=== PATIENT | male | born 1965 | race Two or more races ===

== ENCOUNTER 2024-11-07 07:05 | Inpatient (IN) | payer OTHER ==
[~2024-11-07] VITALS: Ht 172.7 cm; Wt 99.8 kg
[2024-11-07] MEDS ORDERED: METFORMIN HCL1000 M2 PO (07:46)
[2024-11-07] MEDS ORDERED: TOPROL XL25 M1 (07:46)
[2024-11-07] MEDS ORDERED: JARDIANCE25 MG PO (07:47)
[2024-11-07] MEDS ORDERED: LIPOFEN150 MG (07:47)
[2024-11-07] MEDS ORDERED: PLAVIX75 MG PO (07:48)
[2024-11-07] MEDS ORDERED: ZESTRIL10 M1 (07:48)
[2024-11-07] MEDS ORDERED: TRADJENTA5 MG (07:48)
[2024-11-07] MEDS ORDERED: LANTHANUM CAR1000 MG PO (07:49)
[2024-11-07] MEDS ORDERED: 0.9 % SODIUM CHLORIDE 1,000 ML IV SCH ×2 (08:21→12:45)
[2024-11-07 09:07] LABS: HEMATOCRIT 43.6 % (39.0-48.0); HEMOGLOBIN 14.7 g/dL (13-16.00); MEAN CELL VOLUME 89.2 fL (80.0-100.00); MEAN CORPUSCULAR HEMOGLOBIN 30.1 pg (27.00-32.0); MEAN CORPUSCULAR HGB CONC 33.8 g/dl (32.0-36.0); PLATELET COUNT 194 K/uL (150-450); RED BLOOD COUNT 4.88 M/uL (4.00-6.00); RED CELL DISTRIBUTION WIDTH 15.9 % (11.5-14.5)
[2024-11-07 09:28] LABS: CALCIUM 9.4 mg/dL (8.5-10.1); CREATININE SERUM 1.56 mg/dL (0.70-1.30); GFR 45.78; POTASSIUM 4.27 mEq/L (3.5-5.1)
[2024-11-07 09:30] LABS: INR 1.02; PARTIAL THROMBOPLASTIN TIME 28.8 SECONDS (22.0-34.0); PROTHROMBIN TIME 11.1 SECONDS (9.0-11.5)
[2024-11-07 09:33] LABS: URINE APPEARANCE Clear; URINE BACTERIA 6.1 uL (0.0-1933); URINE BILIRRUBIN Negative (NEGATIVE); URINE BLOOD Negative; URINE COLOR Yellow; URINE KETONE Negative (NEGATIVE); URINE LEUKOCYTE Negative; URINE NITRATE Negative; URINE PROTEIN Negative (NEGATIVE); URINE RBC 22.5 uL (0.0-20.8); URINE UROBILINOGEN 0.2 E.U./dl; URINE WBC 1.8 uL (0.0-23.2)
[2024-11-07 09:41] LABS: URINE EPITHELIAL CELLS 0.9 uL (0.0-38.8); URINE GLUCOSE >=1000 MG/DL (NEGATIVE)
[2024-11-07] MEDS ORDERED: SODIUM HYPOCHLORITE 1OZ TOP SCH (10:22)
[2024-11-07] MEDS ORDERED: PIPERACILLIN/TAZOBACTAM SODIUM 3.375 GM in 0.9 % SODIUM CHLORIDE 100 ML IV SCH (12:38)
[2024-11-07] MEDS ORDERED: ACETAMINOPHEN 500 MG GEL..CAP PO PRN (12:45)
[2024-11-07] MEDS ORDERED: INSULIN LISPRO 1,000 UNIT/10 ML UNITS SUBCUTANEO PRN (12:45)
[2024-11-07] MEDS ORDERED: DEXTROSE 50 % IN WATER 0.5 G/ML DISP.SYRIN IV PRN (12:45)
[2024-11-07] MEDS ORDERED: LISINOPRIL 10 MG TABLET PO SCH (12:50)
[2024-11-07] MEDS ORDERED: CLOPIDOGREL BISULFATE 75 MG TABLET PO SCH (12:50)
[2024-11-07] MEDS ORDERED: METOPROLOL TARTRATE 25 MG TABLET PO SCH (12:51)
[2024-11-07] MEDS ORDERED: ATORVASTATIN CALCIUM 40 MG TABLET PO SCH (12:51)
[2024-11-07] MEDS ORDERED: GABAPENTIN 800 MG TABLET PO SCH (12:51)
[2024-11-07 13:07] VITALS: BP 157/76
[2024-11-07] MEDS ORDERED: FAMOTIDINE/PF 20 MG/2 ML VIAL ONE (13:30)
[2024-11-07] MEDS ORDERED: PIPERACILLIN/TAZOBACTAM SODIUM 3.375 GM VIAL IV ONE (13:30)
[2024-11-07] MEDS ORDERED: FAMOTIDINE/PF 20 MG/2 ML VIAL IV NR (14:00)
[2024-11-07 14:02] LABS: PARTIAL THROMBOPLASTIN TIME 29.9 SECONDS (22.0-34.0); PROTHROMBIN TIME 10.9 SECONDS (9.0-11.5)
[2024-11-07 14:29] LABS: ALBUMIN 3.6 gm/dL (3.4-5.0); CALCIUM 9.5 mg/dL (8.5-10.1); CREATININE SERUM 1.44 mg/dL (0.70-1.30); GFR 50.21; PHOSPHOROUS 4.1 mg/dL (2.5-4.9); POTASSIUM 4.53 mEq/L (3.5-5.1)
[2024-11-07 16:06] VITALS: BP 142/72; O2SAT 100
[2024-11-07] MEDS ORDERED: NICOTINE 21MG/24HR PATCH.TD24 TD SCH (17:00)
[2024-11-07 18:12] VITALS: BP 146/79; O2SAT 97
[2024-11-07] MEDS ORDERED: FAMOTIDINE/PF 20 MG in 0.9 % SODIUM CHLORIDE 8 ML IV PUSH SCH (21:00)
[2024-11-08 01:48] VITALS: BP 142/72; O2SAT 95
[2024-11-08 08:39] VITALS: BP 154/80; O2SAT 99
[2024-11-08] MEDS ORDERED: FAMOTIDINE/PF 20 MG/2 ML VIAL ONE (15:27)
[2024-11-08 17:31] VITALS: BP 151/76; O2SAT 100
[2024-11-08] MEDS ORDERED: INSULIN GLARGINE,HUM.REC.ANLOG 1,000 UNITS/10 ML UNITS SUBCUTANEO SCH (21:00)
[2024-11-08] MEDS ORDERED: PIPERACILLIN/TAZOBACTAM SODIUM 3.375 GM VIAL IV ONE (23:44)
[2024-11-09 02:19] VITALS: BP 156/76; O2SAT 99
[2024-11-09 07:43] LABS: CALCIUM 9.3 mg/dL (8.5-10.1); CREATININE SERUM 1.51 mg/dL (0.70-1.30); GFR 47.53; POTASSIUM 4.74 mEq/L (3.5-5.1)
[2024-11-09 09:33] VITALS: BP 152/73; O2SAT 98
[2024-11-09] MEDS ORDERED: INSULIN LISPRO 1,000 UNIT/10 ML UNITS SUBCUTANEO STA (10:04)
[2024-11-09] MEDS ORDERED: INSULIN REGULAR, HUMAN 1,000 UNIT/10 ML UNITS IV STA (10:04)
[2024-11-09] MEDS ORDERED: INSULIN LISPRO 1,000 UNIT/10 ML UNITS SUBCUTANEO SCH ×2 (12:00)
[2024-11-09 16:19] VITALS: BP 172/78; O2SAT 97
[2024-11-09] MEDS ORDERED: FAMOTIDINE/PF 20 MG/2 ML VIAL ONE (20:02)
[2024-11-09] MEDS ORDERED: INSULIN GLARGINE,HUM.REC.ANLOG 1,000 UNITS/10 ML UNITS SUBCUTANEO SCH ×2 (21:00)
[2024-11-10] MEDS ORDERED: SODIUM CL 0.9% 100 ML IV.SOLN IV ONE (02:12)
[2024-11-10 03:04] VITALS: BP 142/76; O2SAT 100
[2024-11-10 10:07] VITALS: BP 147/73
[2024-11-10] MEDS ORDERED: INSULIN LISPRO 1,000 UNIT/10 ML UNITS SUBCUTANEO SCH (12:00)
[2024-11-10 17:26] VITALS: BP 179/77; O2SAT 93
[2024-11-11 01:27] VITALS: BP 140/69
[2024-11-11 07:47] LABS: ALBUMIN 3.2 gm/dL (3.4-5.0); CALCIUM 9.7 mg/dL (8.5-10.1); CREATININE SERUM 1.61 mg/dL (0.70-1.30); GFR 44.14; PHOSPHOROUS 4.1 mg/dL (2.5-4.9); POTASSIUM 4.78 mEq/L (3.5-5.1)
[2024-11-11 09:00] VITALS: BP 148/80; O2SAT 98
[2024-11-11 15:22] LABS: ALBUMIN 3.5 gm/dL (3.4-5.0); BILIRUBIN TOTAL 0.39 mg/dL (0.3-1.2); CALCIUM 10.1 mg/dL (8.5-10.1); CREATININE SERUM 2.09 mg/dL (0.70-1.30); GFR 32.67; GLOBULINA 4.4 G/DL (2.4-3.5); POTASSIUM 4.32 mEq/L (3.5-5.1); TOTAL PROTEIN 7.9 gm/dL (6.4-8.2)
[2024-11-11 16:39] VITALS: BP 128/70; O2SAT 98
[2024-11-12 00:47] VITALS: BP 146/78; O2SAT 98
[2024-11-12] MEDS ORDERED: INSULIN LISPRO 1,000 UNIT/10 ML UNITS SUBCUTANEO SCH (08:00)
[2024-11-12 08:54] VITALS: BP 148/75; O2SAT 99
[2024-11-12 17:19] VITALS: BP 133/78; O2SAT 97
[2024-11-13 01:05] VITALS: BP 155/80; O2SAT 98
[2024-11-13 06:08] LABS: HEMATOCRIT 43.6 % (39.0-48.0); HEMOGLOBIN 14.8 g/dL (13-16.00); MEAN CELL VOLUME 88.5 fL (80.0-100.00); MEAN CORPUSCULAR HGB CONC 33.9 g/dl (32.0-36.0); PLATELET COUNT 195 K/uL (150-450); RED BLOOD COUNT 4.93 M/uL (4.00-6.00); RED CELL DISTRIBUTION WIDTH 15.7 % (11.5-14.5)
[2024-11-13 06:57] LABS: ALBUMIN 3.3 gm/dL (3.4-5.0); CALCIUM 9.7 mg/dL (8.5-10.1); CREATININE SERUM 1.93 mg/dL (0.70-1.30); GFR 35.81; PHOSPHOROUS 4.3 mg/dL (2.5-4.9); POTASSIUM 4.54 mEq/L (3.5-5.1)
[2024-11-13 08:49] VITALS: BP 143/77; O2SAT 98
[2024-11-13 15:37] LABS: CALCIUM 10.1 mg/dL (8.5-10.1); CREATININE SERUM 1.71 mg/dL (0.70-1.30); GFR 41.18; POTASSIUM 4.67 mEq/L (3.5-5.1)
[2024-11-13 16:54] VITALS: BP 143/72; O2SAT 100
[2024-11-14 01:26] VITALS: BP 145/66; O2SAT 97
[2024-11-14 09:18] VITALS: BP 148/74; O2SAT 98
== END 2024-11-14 10:05 | disposition home or self-care (01) | DRG 623 ==
LOC: ER 07:07 → MEDI 13:01
PROVIDERS: Emergency Medicine; General Practice; Internal Medicine Endocrinology, Diabetes & Metabolism; Student in an Organized Health Care Education/Training Program; ADMIT Internal Medicine; ATTEND Internal Medicine
PROC: BL31ZZZ Magnetic Resonance Imaging (MRI) of Lower Extremity Connective Tissue (ICD-10-PCS; 2024-11-07)
PROC: 0JBQ0ZZ Excision of Right Foot Subcutaneous Tissue and Fascia, Open Approach (ICD-10-PCS; principal; 2024-11-08)
PROC: 0QBQ0ZZ Excision of Right Toe Phalanx, Open Approach (ICD-10-PCS; 2024-11-08)
PROC: B44HZZZ Ultrasonography of Bilateral Lower Extremity Arteries (ICD-10-PCS; 2024-11-08)
DX: E11.621 Type 2 diabetes mellitus with foot ulcer (principal); L02.611 Cutaneous abscess of right foot; M86.171 Other acute osteomyelitis, right ankle and foot; L97.512 Non-pressure chronic ulcer of other part of right foot with fat layer exposed; E11.51 Type 2 diabetes mellitus with diabetic peripheral angiopathy without gangrene; E11.65 Type 2 diabetes mellitus with hyperglycemia; N17.9 Acute kidney failure, unspecified; I13.10 Hypertensive heart and chronic kidney disease without heart failure, with stage 1 through stage 4 chronic kidney disease, or unspecified chronic kidney disease; N18.9 Chronic kidney disease, unspecified; B95.61 Methicillin susceptible Staphylococcus aureus infection as the cause of diseases classified elsewhere; B95.2 Enterococcus as the cause of diseases classified elsewhere; B96.83 Acinetobacter baumannii as the cause of diseases classified elsewhere; B96.1 Klebsiella pneumoniae [K. pneumoniae] as the cause of diseases classified elsewhere; Z79.4 Long term (current) use of insulin; Z79.84 Long term (current) use of oral hypoglycemic drugs
CPT/HCPCS: 73221

== ENCOUNTER 2024-12-15 07:58 | Emergency (ER) | payer OTHER ==
[~2024-12-15] VITALS: Ht 180.3 cm; Wt 92.5 kg
[~2024-12-15 07:58] MED LIST: JARDIANCE25 MG PO; LANTHANUM CAR1000 MG PO; LIPOFEN150 MG; METFORMIN HCL1000 M2 PO; PLAVIX75 MG PO; TOPROL XL25 M1; TRADJENTA5 MG; ZESTRIL10 M1
[2024-12-15] MEDS ORDERED: DICLOFENAC SODI75 MG PO (08:33)
[2024-12-15] MEDS ORDERED: ORPHENADRINE CITRATE 30 MG/ML AMPUL ONE (08:36)
[2024-12-15] MEDS ORDERED: KETOROLAC TROMETHAMINE 60 MG VIAL IM ONE ×2 (08:36→08:45)
[2024-12-15] MEDS ORDERED: ORPHENADRINE CITRATE 30 MG/ML AMPUL IM ONE (08:45)
== END 2024-12-15 08:44 | disposition home or self-care (01) ==
LOC: ER 08:00
DX: M54.50 Low back pain, unspecified (principal); I10 Essential (primary) hypertension; E11.9 Type 2 diabetes mellitus without complications; Z79.84 Long term (current) use of oral hypoglycemic drugs

== ENCOUNTER 2024-12-19 05:32 | Emergency (ER) | payer OTHER ==
[~2024-12-19] VITALS: Ht 180.3 cm; Wt 92.5 kg
[~2024-12-19 05:32] MED LIST changes: +DICLOFENAC SODI75 MG PO
[2024-12-19] MEDS ORDERED: ORPHENADRINE CITRATE 30 MG/ML AMPUL IV STA (07:06)
[2024-12-19] MEDS ORDERED: METHYLPREDNISOLONE SOD SUCC 125 MG VIAL IV STA (07:06)
[2024-12-19] MEDS ORDERED: KETOROLAC TROMETHAMINE 30 MG VIAL IV STA (07:06)
[2024-12-19] MEDS ORDERED: ORPHENADRINE CITRATE 30 MG/ML AMPUL ONE (07:23)
[2024-12-19] MEDS ORDERED: KETOROLAC TROMETHAMINE 30 MG VIAL ONE (07:23)
[2024-12-19] MEDS ORDERED: METHYLPREDNISOLONE SOD SUCC 125 MG VIAL ONE (07:24)
[2024-12-19] MEDS ORDERED: WATER FOR INJ.,BACTERIOSTATIC 30 ML VIAL IJ ONE (07:24)
[2024-12-19] MEDS ORDERED: CELEBREX200MG PO (09:53)
[2024-12-19] MEDS ORDERED: METAXALONE800 MG PO (09:53)
[2024-12-19 10:10] VITALS: BP 149/74; O2SAT 98
== END 2024-12-19 10:12 | disposition home or self-care (01) ==
LOC: ER 05:35
DX: M54.50 Low back pain, unspecified (principal); M54.16 Radiculopathy, lumbar region; I10 Essential (primary) hypertension; E11.9 Type 2 diabetes mellitus without complications; Z79.84 Long term (current) use of oral hypoglycemic drugs

== ENCOUNTER 2025-10-28 07:08 | Emergency (ER) | payer OTHER ==
[~2025-10-28] VITALS: Ht 180.3 cm; Wt 93.0 kg
[~2025-10-28 07:08] MED LIST changes: +CELEBREX200MG PO; +METAXALONE800 MG PO
[2025-10-28 07:17] VITALS: BP 168/84; O2SAT 100
[2025-10-28] MEDS ORDERED: ORPHENADRINE CITRATE 30 MG/ML AMPUL ONE (07:54)
[2025-10-28] MEDS ORDERED: KETOROLAC TROMETHAMINE 60 MG VIAL IM ONE ×2 (07:54→08:00)
[2025-10-28] MEDS ORDERED: ORPHENADRINE CITRATE 30 MG/ML AMPUL IM ONE (08:00)
[2025-10-28] MEDS ORDERED: NORFLEX100MG PO (09:51)
== END 2025-10-28 10:13 | disposition home or self-care (01) ==
LOC: ER 07:09
DX: M54.16 Radiculopathy, lumbar region (principal); M51.369 Other intervertebral disc degeneration, lumbar region without mention of lumbar back pain or lower extremity pain; E11.9 Type 2 diabetes mellitus without complications; Z79.84 Long term (current) use of oral hypoglycemic drugs; I10 Essential (primary) hypertension